=== PATIENT | male | born 1960 | race Caucasian/White ===

== ENCOUNTER 2024-10-26 23:07 | Inpatient (IN) ==
[2024-10-26 23:35] LABS: iSTAT Creatinine 1.1 mg/dl (0.6-1.3); iSTAT Ionized Calcium 1.18 mmol/l (1.12-1.32); iSTAT Potassium 3.6 mmol/L (3.3-5.0)
[2024-10-26 23:49] LABS: Appearance Urine Clear (Clear); Bilirubin Urine Negative (Negative); Blood Urine Negative (Negative); Color Urine Yellow; Glucose Urine UA Negative (Negative); Ketones Urine Negative (Negative); Leukocyte Esterase Urine Negative (Negative); Nitrite Urine Negative (Negative); Protein Urine Negative (Negative); Specific Gravity Urine 1.015 (1.000-1.030); Urobilinogen Urine Negative (Negative); pH Urine 6.5 (4.5-7.5)
[2024-10-26 23:55] LABS: Hematocrit (blood only) 47.7 % (42.0-52.0); Hemoglobin 16.2 g/dl (14.0-18.0); Mean Corpuscular Hemoglobin 29.1 pg (25.0-34.0); Mean Corpuscular Volume 85.6 fL (80.0-100.0); RDW Coefficient of Variation 13.1 % (11.5-14.5); RDW Standard Deviation 40.1 fL (36.4-46.3); Red Blood Count 5.57 M/uL (4.70-6.10); White Blood Count 8.16 K/ul (4.8-10.8)
[2024-10-26 23:56] LABS: Basophils # (auto) 0.03 K/uL (0.00-0.20); Basophils % (auto) 0.4 %; Eosinophils # (auto) 0.23 K/uL (0.00-0.50); Eosinophils % (auto) 2.8 %; Immature Granulocytes # (auto) 0.02 K/uL (0.01-0.20); Immature Granulocytes % (auto) 0.2 %; Lymphocytes # (auto) 1.72 K/uL (1.20-3.40); Lymphocytes % (auto) 21.1 %; Mean Platelet Volume 10.1 fL (9.4-12.4); Monocytes # (auto) 0.72 K/uL (0.11-0.59); Monocytes % (auto) 8.8 %; Neutrophils # (auto) 5.44 K/uL (1.40-6.50); Neutrophils % (auto) 66.7 %; Platelet Count 152 K/uL (130-400)
[2024-10-27 00:12] LABS: Albumin Globulin Ratio 1.6 (0.9-2); Albumin Level 4.5 gm/dl (3.4-5.0); BUN Creatinine Ratio 18.4 (10-20); Bilirubin,Total 0.9 mg/dl (0.2-1.0); Calcium 8.9 mg/dl (8.6-10.3); Creatinine Clr Calc Pharmacy 87.6 ml/min; Globulin 2.9 gm/dl (2.5-4.0); Potassium 3.6 mmol/L (3.5-5.1); Total Protein 7.4 gm/dl (6.0-8.3)
--- NOTE | 2024-10-27 00:16 | Emergency Department Note ---
History of Present Illness General Chief complaint: Confusion Stated complaint: CONFUSION, SUDDEN LOSS OF MEMORY Time Seen by Provider: 10/26/24 23:48 History of Present Illness This 64-year-old male with a history of hypertension and dyslipidemia presents ER for confusion episode that started at 2100. History is obtained from the patient and from the nephew. Apparently around 2100 the girlfriend noticed that he was not acting right and called the nephew who then called EMS and patient was brought here. Patient apparently keeps on repeating himself is not aware of this. Patient cannot remember what he did today. History is obtained from the nephew states that he had a normal day where he went to [place] with his brother to get a safe and had dolls for breakfast and soup at his family's house. Family denies drug use, fall, trauma, or any behavior similar to this in the past. Patient himself has no complaints. He is unaware that he is repeating himself. He is following commands. He knows where he is at but not the year or month. Past Med/Surg History Problem List (Updated 10/27/24 @ 01:31 by Jeimy Foster PA-C) Altered mental status (Acute) Social History Smoking Status: Never smoker Feels Safe at Home: Yes Review of Systems A total of 10 systems reviewed and were otherwise negative Physical Exam Vital Signs Vital Signs - 24 hr 10/26/24 23:17 10/26/24 23:17 10/26/24 23:37 Temperature 36.7 C Temperature Source Oral Pulse Rate 79 81 Pulse Rate [Apical] Respiratory Rate 17 Respiratory Effort / Characteristics Non-Labored Respiratory Depth Normal Blood Pressure 177/106 H Blood Pressure [Right Arm] Blood Pressure Mean 129 Blood Pressure Mean [Right Arm] Pulse Oximetry 92 92 Oxygen Delivery Method Room Air Room Air Sepsis Recent Fever Within 48 Hours No Sepsis New/Unexplained Change in Mental Status No Sepsis Action Taken by Nursing No Action Required 10/26/24 23:55 10/27/24 00:39 10/27/24 01:00 Temperature Temperature Source Pulse Rate 88 Pulse Rate [Apical] 79 73 Respiratory Rate 20 18 Respiratory Effort / Characteristics Non-Labored Spontaneous Respiratory Depth Normal Blood Pressure 174/108 H Blood Pressure [Right Arm] 174/121 H 153/113 H Blood Pressure Mean Blood Pressure Mean [Right Arm] 138 126 Pulse Oximetry 95 93 Oxygen Delivery Method Room Air Room Air Sepsis Recent Fever Within 48 Hours Sepsis New/Unexplained Change in Mental Status Sepsis Action Taken by Nursing 10/27/24 01:24 10/27/24 01:24 Temperature Temperature Source Pulse Rate 75 75 Pulse Rate [Apical] Respiratory Rate Respiratory Effort / Characteristics Respiratory Depth Blood Pressure 153/113 H 153/113 H Blood Pressure [Right Arm] Blood Pressure Mean Blood Pressure Mean [Right Arm] Pulse Oximetry Oxygen Delivery Method Sepsis Recent Fever Within 48 Hours Sepsis New/Unexplained Change in Mental Status Sepsis Action Taken by Nursing VITALS: Vitals are noted on the nurse's note and reviewed by myself. Vital signs stable. GENERAL: Pleasant gentleman, in no acute distress, nondiaphoretic, well- developed well-nourished. SKIN: The skin was without rashes, erythema, edema, or bruising. There is no tenting of the skin. Capillary reflex less than 2 seconds. HEAD: Normocephalic atraumatic. EARS: External auditory canals clear EYES: Pupils equal round and reactive to light and accommodation. Conjunctivae without injection, sclerae without icterus. Extraocular movements intact. NOSE: Patent, no discharge. MOUTH: Mucous membranes moist. Pharynx without erythema or exudate. Uvula midline. Airway patent. Tongue does not deviate. NECK: Supple without nuchal rigidity. No lymphadenopathy. No thyromegaly. Cervical spine is nontender. No JVD. HEART: Regular rate and rhythm LUNGS: Clear to auscultation bilaterally without wheezes, rales or rhonchi. No retractions or accessory muscle use. ABDOMEN: Positive bowel sounds x 4. Normal tympanic percussion. Soft, nontender, without masses or organomegaly. Bunch sign negative. No guarding or rebound tenderness. No CVA tenderness MUSCULOSKELETAL: No muscle atrophy, erythema, or edema noted. NEURO: Patient was alert and oriented to person place but not time. Normal sensation to light and sharp touch. No focal neurological deficits. Course Administered Medications Discontinued Medications Ioversol (Optiray 320 125ml) 118 ml IV ONCE ONE Stop: 10/27/24 00:25 Last Admin: 10/27/24 00:24 Dose: 118 ml Documented By: CLIFFORD Labetalol HCl (Labetalol Hcl Iv 5 Mg/Ml 20ml) 10 mg IV NOW STA Stop: 10/27/24 00:35 Last Admin: 10/27/24 00:39 Dose: 10 mg Documented By: ROGELIO Labetalol HCl (Labetalol Hcl Iv 5 Mg/Ml 20ml) 10 mg IV NOW STA Stop: 10/27/24 00:45 Last Admin: 10/27/24 01:24 Dose: 10 mg Documented By: ROGELIO Critical Care Time Critical Care Time: Yes Total Critical Care Time: 35 I have personally spent 35 minutes of critical care time in the direct management of this patient. This includes bedside care, interpretation of diagnostic studies, and testing, discussion with consultants, patient, and family members, and other required patient management activities. This 35 minutes is in excess of all separately billable procedures. Medical Decision Making Medical Records Attestation: I reviewed the patient's medical records. Home Medications Current Medication List: was personally reviewed by me Laboratory Data Attestation: I reviewed the patient's lab results. 10/26/24 23:38 10/26/24 23:38 Lab Results 10/26/24 10/26/24 10/26/24 Range/Units 23:15 23:22 23:32 WBC (4.8-10.8) K/ul RBC (4.70-6.10) M/uL Hgb (14.0-18.0) g/dl POC Hgb 16.0 (14.0-18.0) g/dl Hct (42.0-52.0) % POC Hct 47 (42-52) % MCV (80.0-100.0) fL MCH (25.0-34.0) pg MCHC (32.0-36.0) g/dL RDW Std Deviation (36.4-46.3) fL RDW Coeff of Jeffery (11.5-14.5) % Plt Count (130-400) K/uL MPV (9.4-12.4) fL Immature Gran % (Auto) % Neut % (Auto) % Lymph % (Auto) % [place] % (Auto) % Eos % (Auto) % Baso % (Auto) % Neut # (Auto) (1.40-6.50) K/uL Lymph # (Auto) (1.20-3.40) K/uL [place] # (Auto) (0.11-0.59) K/uL Eos # (Auto) (0.00-0.50) K/uL Baso # (Auto) (0.00-0.20) K/uL Immature Gran # (Auto) (0.01-0.20) K/uL PT 10.3 (9.0-12.0) Seconds INR 0.9 (0.9-1.1) APTT 28 (21-31) Seconds PTT Ratio 1.0 POC Sodium 141 (135-144) mmol/L Sodium (136-145) mmol/L POC Potassium 3.6 (3.3-5.0) mmol/L Potassium (3.5-5.1) mmol/L POC Chloride 104 (101-112) mmol/L Chloride (98-107) mmol/L Carbon Dioxide (21-32) mmol/L POC Total CO2 24 (24-31) mmol/L Anion Gap (3-11) POC Anion Gap 19.0 (16-25) mmol/L POC BUN 18 (7-18) mg/dl BUN (6-23) mg/dl Creatinine (0.6-1.4) mg/dl POC Creatinine 1.1 (0.6-1.3) mg/dl Est Cr Clr Drug Dosing ml/min eGFR BUN/Creatinine Ratio (10-20) Glucose (70-99(Fasting)) mg/dl POC Glucose (other) 114 H (70-99) mg/dl Calcium (8.6-10.3) mg/dl POC Ioniz Calcium Saige 1.18 (1.12-1.32) mmol/l Magnesium (1.7-2.4) mg/dl Total Bilirubin (0.2-1.0) mg/dl AST (13-39) U/L ALT (7-52) U/L Alkaline Phosphatase (34-104) U/L Troponin I High Sens (0-20) pg/ml Total Protein (6.0-8.3) gm/dl Albumin (3.4-5.0) gm/dl Globulin (2.5-4.0) gm/dl Albumin/Globulin Ratio (0.9-2) TSH (0.300-4.500) uIu/ml Urine Color Yellow Urine Appearance Clear (Clear) Urine pH 6.5 (4.5-7.5) Ur Specific Stanley 1.015 (1.000-1.030) Urine Protein Negative (Negative) Urine Glucose (UA) Negative (Negative) Urine Ketones Negative (Negative) Urine Blood Negative (Negative) Urine Nitrite Negative (Negative) Urine Bilirubin Negative (Negative) Urine Urobilinogen Negative (Negative) Ur Leukocyte Esterase Negative (Negative) Urine Opiates Screen Neg (Neg) Ur Methadone, Qual Neg (Neg) Urine Fentanyl Screen Neg (Neg) Urine Barbiturates Neg (Neg) Ur Phencyclidine (PCP) Neg (Neg) U Amphetamin/Meth Scrn Neg (Neg) MDMA (Ecstasy) Screen Neg (Neg) U Benzodiazepines Scrn Neg (Neg) Ur Cocaine Metabolite Neg (Neg) U Marijuana (THC) Screen Neg (Neg) Ethyl Alcohol mg/dL (<10.0) mg/dl 10/26/24 10/26/24 Range/Units 23:38 23:43 WBC 8.16 (4.8-10.8) K/ul RBC 5.57 (4.70-6.10) M/uL Hgb 16.2 (14.0-18.0) g/dl POC Hgb (14.0-18.0) g/dl Hct 47.7 (42.0-52.0) % POC Hct (42-52) % MCV 85.6 (80.0-100.0) fL MCH 29.1 (25.0-34.0) pg MCHC 34.0 (32.0-36.0) g/dL RDW Std Deviation 40.1 (36.4-46.3) fL RDW Coeff of Jeffery 13.1 (11.5-14.5) % Plt Count 152 (130-400) K/uL MPV 10.1 (9.4-12.4) fL Immature Gran % (Auto) 0.2 % Neut % (Auto) 66.7 % Lymph % (Auto) 21.1 % [place] % (Auto) 8.8 % Eos % (Auto) 2.8 % Baso % (Auto) 0.4 % Neut # (Auto) 5.44 (1.40-6.50) K/uL Lymph # (Auto) 1.72 (1.20-3.40) K/uL [place] # (Auto) 0.72 H (0.11-0.59) K/uL Eos # (Auto) 0.23 (0.00-0.50) K/uL Baso # (Auto) 0.03 (0.00-0.20) K/uL Immature Gran # (Auto) 0.02 (0.01-0.20) K/uL PT (9.0-12.0) Seconds INR (0.9-1.1) APTT (21-31) Seconds PTT Ratio POC Sodium (135-144) mmol/L Sodium 138 (136-145) mmol/L POC Potassium (3.3-5.0) mmol/L Potassium 3.6 (3.5-5.1) mmol/L POC Chloride (101-112) mmol/L Chloride 106 (98-107) mmol/L Carbon Dioxide 27 (21-32) mmol/L POC Total CO2 (24-31) mmol/L Anion Gap 5 (3-11) POC Anion Gap (16-25) mmol/L POC BUN (7-18) mg/dl BUN 19 (6-23) mg/dl Creatinine 1.03 (0.6-1.4) mg/dl POC Creatinine (0.6-1.3) mg/dl Est Cr Clr Drug Dosing 87.6 ml/min eGFR 81.12 BUN/Creatinine Ratio 18.4 (10-20) Glucose 113 H (70-99(Fasting)) mg/dl POC Glucose (other) (70-99) mg/dl Calcium 8.9 (8.6-10.3) mg/dl POC Ioniz Calcium Saige (1.12-1.32) mmol/l Magnesium 2.2 (1.7-2.4) mg/dl Total Bilirubin 0.9 (0.2-1.0) mg/dl AST 23 (13-39) U/L ALT 29 (7-52) U/L Alkaline Phosphatase 46 (34-104) U/L Troponin I High Sens 2.8 (0-20) pg/ml Total Protein 7.4 (6.0-8.3) gm/dl Albumin 4.5 (3.4-5.0) gm/dl Globulin 2.9 (2.5-4.0) gm/dl Albumin/Globulin Ratio 1.6 (0.9-2) TSH 2.309 (0.300-4.500) uIu/ml Urine Color Urine Appearance (Clear) Urine pH (4.5-7.5) Ur Specific Stanley (1.000-1.030) Urine Protein (Negative) Urine Glucose (UA) (Negative) Urine Ketones (Negative) Urine Blood (Negative) Urine Nitrite (Negative) Urine Bilirubin (Negative) Urine Urobilinogen (Negative) Ur Leukocyte Esterase (Negative) Urine Opiates Screen (Neg) Ur Methadone, Qual (Neg) Urine Fentanyl Screen (Neg) Urine Barbiturates (Neg) Ur Phencyclidine (PCP) (Neg) U Amphetamin/Meth Scrn (Neg) MDMA (Ecstasy) Screen (Neg) U Benzodiazepines Scrn (Neg) Ur Cocaine Metabolite (Neg) U Marijuana (THC) Screen (Neg) Ethyl Alcohol mg/dL < 10.0 (<10.0) mg/dl Imaging Data Attestation: I personally reviewed and interpreted this imaging study as follows: Radiologist's Impression: Head CT 10/26/24 23:56 EXAM: CT head/brain wo con CLINICAL HISTORY: neuro deficit, acute stroke suspected TECHNIQUE: Multiple axial images are obtained from the skull base to the vertex without contrast. CT scan was performed according to ALARA (as low as reasonably achievable). COMPARISON: None. FINDINGS: There is cerebral atrophy. No evidence of space occupying lesion, hemorrhage, edema, mass effect, midline shift, extra axial collection, or hydrocephalus is noted. Basal cisterns are symmetric and normal in size and configuration. There are scattered periventricular hypodensities as can be seen with chronic microvascular ischemic changes. The johnson-white matter differentiation is preserved. Visualized paranasal sinuses and mastoid air cells are well aerated. Orbital contents are within normal limits. Bony structures are intact. IMPRESSION: 1. No evidence of acute intracranial abnormality is demonstrated. 2. Chronic microvascular ischemic changes. 3. Cerebral atrophy. 4. CT scan is negative for large territorial ischemic / hemorrhagic stroke. 5. Non contrast CT can be negative in the setting of hyperacute infarct/small ischemic infarct and further evaluation with diffusion weighted MRI is recommended as clinically appropriate. Electronically signed by Massimo Mims 10-27-2024 01:10 AM Head CTA 10/26/24 23:56 EXAM: CT angio head w con CLINICAL HISTORY: neuro deficit, acute stroke suspected TECHNIQUE: Contrast enhanced thin slice CT angiography scan of the cerebral vessels was performed with intravenous contrast. Angiographic images were processed, 3D MIP images were acquired for interpretation. Contiguous axial images were obtained. Reformatted coronal and sagittal images were also reviewed. If IV contrast material had not been administered, the likelihood of detecting abnormalities relevant to the patients condition would have been substantially decreased. CT scan was performed according to ALARA (as low as reasonably achievable). COMPARISON: none. FINDINGS: Right vertebral artery appears hypoplastic. Mild atherosclerotic calcifications noted involving supraclinoid segment of bilateral internal carotid arteries. No stenosis noted. Bilateral internal carotid arteries show normal course, calibre and opacification in the canalicular and cavernous part. Their division into the anterior cerebral artery and middle cerebral artery is defined. A1, A2 and M1, M2 segments are normal on both the sides. Bilateral vertebral arteries are seen to unite the form the basilar artery in a normal fashion. Basilar artery shows normal course, caliber and opacification. Its division into the posterior cerebral arteries is defined. Bilateral P1 and P2 segments are normal. Visualized venous structures show normal opacification. No evidence of intracranial aneurysm or AV malformation is seen. IMPRESSION: 1. No evidence of stenosis or aneurysm. No evidence of dissection. 2. Right vertebral artery appears hypoplastic. 3. Mild atherosclerotic calcifications noted involving supraclinoid segment of bilateral internal carotid arteries. No stenosis noted. Electronically signed by Massimo Mims 10-27-2024 01:11 AM Neck CTA 10/26/24 23:56 EXAM: CT angio neck with con CLINICAL HISTORY: neuro deficit, acute stroke suspected TECHNIQUE: Contrast enhanced thin slice CT angiography scan of the carotid vessels was performed with intravenous contrast. Angiographic images were processed, 3D MIP images were acquired for interpretation.Contiguous axial images were obtained. Reformatted coronal and sagittal images were also reviewed. If IV contrast material had not been administered, the likelihood of detecting abnormalities relevant to the patients condition would have been substantially decreased. CT scan was performed according to ALARA (as low as reasonable achievable). COMPARISON: None. FINDINGS: Included great vessels of the aortic arch are grossly unremarkable. Common carotid artery, carotid Bulb, internal carotid artery , and origin of the external carotid artery are well opacified. Vertebral arteries are well opacified. Jugular veins are well opacified. Included lung apices are grossly unremarkable. Thyroid gland appears unremarkable. IMPRESSION: 1. No evidence of stenosis or aneurysm. No evidence of dissection. Electronically signed by Massimo Mims 10-27-2024 01:13 AM MDM Narrative Prior records/ancillary studies reviewed and summarized above. Nursing notes reviewed. Additional history obtained from family. The patient's history was concerning for altered mental status. Differential diagnosis: Etiologies such as metabolic, infection, hypoglycemia, electrolyte abnormalities, cardiac sources, intracerebral event, toxicologic, neurologic, as well as others were entertained. Physical examination: As above. ER treatment provided: IV Lock Normal saline hydration, labetalol was ordered for hypertension Patient was sent down immediately for stroke workup An order was placed for continuous cardiac monitoring. The monitor shows a rate of 60-100 with a sinus rhythm per my interpretation. I-STAT was ordered On reassessment the patients mental status improved. Diagnostics interpretation by me: ECG: Ordered for confusion EKG: Normal sinus, left axis, no acute ST-T wave changes, rate 80. Impression normal sinus rhythm with left axis deviation independently interpreted by myself The labs Independently Interpreted by myself revealed no worrisome leukocytosis, euthyroid, negative drug screen. Negative alcohol Imaging studies: Imaging was reviewed and read by radiology Given the above diagnostic work-up and treatment, this episode appears to be consistent with amnesia with unclear etiology. Patient cannot recall the events from today. His memory was improving upon every repeat evaluation. He is able to follow all commands. He is able to tell me the year the month and the president. He knows his girlfriend's name and his nephew's name. He states he cannot recall anything from today or yesterday. He did not remember me being in the room. Stroke imaging was negative. Stable labs. Medicine was consulted case discussed. He will be admitted to the medical service. Further treatment will be required. Consultation: A consultation was placed with the hospitalist. The case was discussed and diagnostics were reviewed. The patient was evaluated in the ER for further treatment. The chart was completed utilizing [employer] Speech voice recognition software. Grammatical errors, random word insertions, pronoun errors, and incomplete sentences are an occassional consequence of this system due to software limitations, ambient noise, and hardware issues. Any formal questions or concerns about the content, text, or information contained within the body of this dictation should be directly addressed to the physician field assistant for clarification. Impression & Plan Altered mental status Discharge Plan Visit Data Chief Complaint: Confusion Stated Complaint: CONFUSION, SUDDEN LOSS OF MEMORY ED Provider: Fatuma Jaramillo ED Midlevel Provider: Jeimy Foster Discharge Problem: Altered mental status Patient Disposition: Admitted As Inpatient Condition: Fair Forms Stand Alone Forms: Important Visit Information Referrals Referrals: PCP,NO [Physician] - Discharge Problem: Altered mental status Qualifiers: Altered mental status type: unspecified Qualified Code(s): R41.82 - Altered mental status, unspecified
[2024-10-27 00:17] LABS: Amphetamines+Metham, Urine Neg (Neg); Barbiturates, Urine Neg (Neg); Benzodiazepine, Urine Neg (Neg); Cocaine, Urine Neg (Neg); Fentanyl, Urine Neg (Neg); MDMA (Ecstacy), Urine Neg (Neg); Marijuana, Urine Neg (Neg); Methadone, Urine Neg (Neg); Opiate, Urine Neg (Neg); Phencyclidine, Urine Neg (Neg)
[2024-10-27 00:22] LABS: INR 0.9 (0.9-1.1); Partial Thromboplastin Time 28 Seconds (21-31); Prothrombin Time 10.3 Seconds (9.0-12.0)
[2024-10-27 00:22] LABS: Magnesium 2.2 mg/dl (1.7-2.4)
[2024-10-27] MEDS: OPTIRAY 320 125ml IV ONE (00:24)
[2024-10-27 00:31] LABS: Troponin I High Sensitivity 2.8 pg/ml (0-20)
[2024-10-27] MEDS: LABETALOL HCL IV 5 MG/ML 20ML IV STA ×2 (00:39→01:24)
[2024-10-27 00:46] LABS: Thyroid Stimulating Hormone 2.309 uIu/ml (0.300-4.500)
--- NOTE | 2024-10-27 01:10 | CT Scan Report ---
EXAM: CT head/brain wo con CLINICAL HISTORY: neuro deficit, acute stroke suspected TECHNIQUE: Multiple axial images are obtained from the skull base to the vertex without contrast. CT scan was performed according to ALARA (as low as reasonably achievable). COMPARISON: None. FINDINGS: There is cerebral atrophy. No evidence of space occupying lesion, hemorrhage, edema, mass effect, midline shift, extra axial collection, or hydrocephalus is noted. Basal cisterns are symmetric and normal in size and configuration. There are scattered periventricular hypodensities as can be seen with chronic microvascular ischemic changes. The johnson-white matter differentiation is preserved. Visualized paranasal sinuses and mastoid air cells are well aerated. Orbital contents are within normal limits. Bony structures are intact. IMPRESSION: 1. No evidence of acute intracranial abnormality is demonstrated. 2. Chronic microvascular ischemic changes. 3. Cerebral atrophy. 4. CT scan is negative for large territorial ischemic / hemorrhagic stroke. 5. Non contrast CT can be negative in the setting of hyperacute infarct/small ischemic infarct and further evaluation with diffusion weighted MRI is recommended as clinically appropriate. Electronically signed by Massimo Mims 10-27-2024 01:10 AM
--- NOTE | 2024-10-27 01:11 | CT Scan Report ---
EXAM: CT angio head w con CLINICAL HISTORY: neuro deficit, acute stroke suspected TECHNIQUE: Contrast enhanced thin slice CT angiography scan of the cerebral vessels was performed with intravenous contrast. Angiographic images were processed, 3D MIP images were acquired for interpretation. Contiguous axial images were obtained. Reformatted coronal and sagittal images were also reviewed. If IV contrast material had not been administered, the likelihood of detecting abnormalities relevant to the patients condition would have been substantially decreased. CT scan was performed according to ALARA (as low as reasonably achievable). COMPARISON: none. FINDINGS: Right vertebral artery appears hypoplastic. Mild atherosclerotic calcifications noted involving supraclinoid segment of bilateral internal carotid arteries. No stenosis noted. Bilateral internal carotid arteries show normal course, calibre and opacification in the canalicular and cavernous part. Their division into the anterior cerebral artery and middle cerebral artery is defined. A1, A2 and M1, M2 segments are normal on both the sides. Bilateral vertebral arteries are seen to unite the form the basilar artery in a normal fashion. Basilar artery shows normal course, caliber and opacification. Its division into the posterior cerebral arteries is defined. Bilateral P1 and P2 segments are normal. Visualized venous structures show normal opacification. No evidence of intracranial aneurysm or AV malformation is seen. IMPRESSION: 1. No evidence of stenosis or aneurysm. No evidence of dissection. 2. Right vertebral artery appears hypoplastic. 3. Mild atherosclerotic calcifications noted involving supraclinoid segment of bilateral internal carotid arteries. No stenosis noted. Electronically signed by Massimo Mims 10-27-2024 01:11 AM
--- NOTE | 2024-10-27 01:14 | CT Scan Report ---
EXAM: CT angio neck with con CLINICAL HISTORY: neuro deficit, acute stroke suspected TECHNIQUE: Contrast enhanced thin slice CT angiography scan of the carotid vessels was performed with intravenous contrast. Angiographic images were processed, 3D MIP images were acquired for interpretation.Contiguous axial images were obtained. Reformatted coronal and sagittal images were also reviewed. If IV contrast material had not been administered, the likelihood of detecting abnormalities relevant to the patients condition would have been substantially decreased. CT scan was performed according to ALARA (as low as reasonable achievable). COMPARISON: None. FINDINGS: Included great vessels of the aortic arch are grossly unremarkable. Common carotid artery, carotid Bulb, internal carotid artery , and origin of the external carotid artery are well opacified. Vertebral arteries are well opacified. Jugular veins are well opacified. Included lung apices are grossly unremarkable. Thyroid gland appears unremarkable. IMPRESSION: 1. No evidence of stenosis or aneurysm. No evidence of dissection. Electronically signed by Massimo Mims 10-27-2024 01:13 AM
[2024-10-27] MEDS ORDERED: PHARMACIST DISCHARGE MED REC CONSULT PRN (02:17)
--- NOTE | 2024-10-27 02:20 | History & Physical Report ---
Date of Service October 27, 2024 Assessment & Plan (1) Memory loss: (2) Hypertension: (3) Hyperlipidemia: (4) BPH w urinary obs/LUTS: Plan The patient is a 64-year-old male with past medical history including hypertension, hyperlipidemia, BPH with LUTS. He was noted by his girlfriend around 2100 cm, to be not acting right, and she called the nephew, who then called EMS and brought the patient to the emergency department. On en route, and when attempting to talk to family, the patient evidently kept repeating himself. Otherwise, his HPI and review of systems are significantly limited at this time. #Memory loss/confusion- Patient's HPI and ROS are significantly limited, and his complete story is piecemeal due to decreased ability to relay the events of the day. Workup in the emergency department includes CT scan of head, CTA head and neck which are negative Urine drug screen is negative Urinalysis is negative Chest x-ray with no acute findings CBC with differential, chemistry profile are all normal Will order the following workup: Tick panel, hypercoagulable workup. The patient will be admitted to telemetry for serial cardiac enzymes, serial EKG's, cardiac rhythm monitoring and a 2-D echocardiogram with Dopplers. He was given aspirin 325 mg in ED, will continue 81 milligram daily Unable to order MRI of brain, due to mental foreign body in his eye Consult neurology Will order follow-up CT scan of the brain The patient and nephew reports that during the hour that he has been in the emergency department, he is able to start remembering more events that day, but still is very confused and his memory is patch working despite Hypertension- Patient had received labetalol 10 mg IV x 2 in emergency department, with improvement in blood pressure from 220s systolic down to 160-180s. Will continue to allow permissive hypertension at this time NSS + KCl 20 mEq at 80 mL/h x 1 L Hyperlipidemia Change from simvastatin 20 mg daily to atorvastatin 80 mg daily for high-dose statin therapy BPH with LUTS- No suggestion of urinary tract infection or prostatitis at this time as potential cause, but should be monitored History of Present Illness Chief Complaint: Patient presents to the emergency department with complaint of episode of confusion, and loss of memory for events that occurred earlier in the day. The patient's HPI and review of systems are very limited, due to his lack of memory of events of the day. He does have his nephew, was in the emergency department with him this evening, and is able to provide some information on the patient's activities today. Primary Care Provider: Castro Vincent The patient is a 64-year-old male with a past medical history including BPH with LUTS, hypertension, and hyperlipidemia. His HPI and review of systems are severely limited in the middle of the night, and difficult to piece together his issues with lack of memory of today's events. Will attempt to discuss further with family and girlfriend later on. Allergies Allergy/AdvReac Type Severity Reaction Status Date / Time No Known Allergies Allergy Unverified 10/27/24 04:21 Home Medications Medication Instructions Recorded Confirmed Type alfuzosin 10 mg tablet,extended 10/27/24 10/27/24 History release 24 hr finasteride 5 mg tablet 5 mg PO DAILY 10/27/24 10/27/24 History losartan 50 mg tablet See Rx Instructions .Route .COMPLEX 10/27/24 History simvastatin 20 mg/5 mL (4 mg/mL) 20 mg PO DAILY 10/27/24 10/27/24 History oral suspension Past Med/Surg History Problem List (Updated 10/27/24 @ 05:09 by José Miguel Francois MD) BPH w urinary obs/LUTS Hyperlipidemia Hypertension Memory loss Altered mental status (Acute) Social History Smoking Status: Never smoker Hx Alcohol Use: Yes Alcohol type: beer Hx Substance Use: No Preferred Language: Eritrean Communication Ability: Effective Radio Intelligence Operator Required: No Beliefs That Will Affect Care: None Current Living Situation: Alone Feels Safe at Home: Yes Assistive Devices: None Review of Systems Review of Systems: HPI systems are limited as noted Physical Exam Physical Exam: The patient is awake, alert and oriented 3, well developed and well nourished, normocephalic and atraumatic, lying in bed and in no acute distress. HEENT--PERRL, EOMI, mucous membranes and oropharynx mildly dry. Neck--supple. No JVD. No bruits. Thyroid normal, trachea midline, no adenopathy. Heart--normal S1 and S2. No murmurs, rubs or gallops. Lungs--clear bilaterally, no respiratory distress, no accessory muscle use. Abdomen--normal bowel sounds and soft. Nontender. Nondistended, no hernias or masses, no organomegaly. Extremities--no cyanosis or clubbing. No edema. There are good distal pulses b/l. Dermatologic--normal skin turgor, normal color, no abnormal lymph nodes, no rash. Neurologic--cranial nerves II through XII grossly intact. Rheumatologic--normal range of motion. Psychiatric--normal affect. Results & Data Results & Data Vital Signs (Past 12 Hours) Vital Signs Temp Pulse Pulse Resp BP BP Pulse Ox 10/27/24 02:02 76 135/78 10/27/24 01:24 75 153/113 H 10/27/24 01:24 75 153/113 H 10/27/24 01:00 73 18 153/113 H 93 10/27/24 00:39 88 174/108 H 10/26/24 23:55 79 20 174/121 H 95 10/26/24 23:37 81 10/26/24 23:17 92 10/26/24 23:17 36.7 C 79 17 177/106 H 92 O2 Del Method 10/27/24 02:02 10/27/24 01:24 10/27/24 01:24 10/27/24 01:00 Room Air 10/27/24 00:39 10/26/24 23:55 Room Air 10/26/24 23:37 10/26/24 23:17 Room Air 10/26/24 23:17 Room Air Laboratory Results Laboratory Results WBC 8.16 K/ul (4.8-10.8) 10/26/24 23:38 RBC 5.57 M/uL (4.70-6.10) 10/26/24 23:38 Hgb 16.2 g/dl (14.0-18.0) 10/26/24 23:38 POC Hgb 16.0 g/dl (14.0-18.0) 10/26/24 23:22 Hct 47.7 % (42.0-52.0) 10/26/24 23:38 POC Hct 47 % (42-52) 10/26/24 23:22 MCV 85.6 fL (80.0-100.0) 10/26/24 23:38 MCH 29.1 pg (25.0-34.0) 10/26/24 23:38 MCHC 34.0 g/dL (32.0-36.0) 10/26/24 23:38 RDW Std Deviation 40.1 fL (36.4-46.3) 10/26/24 23:38 RDW Coeff of Jeffery 13.1 % (11.5-14.5) 10/26/24 23:38 Plt Count 152 K/uL (130-400) 10/26/24 23:38 MPV 10.1 fL (9.4-12.4) 10/26/24 23:38 Immature Gran % (Auto) 0.2 % 10/26/24 23:38 Neut % (Auto) 66.7 % 10/26/24 23:38 Lymph % (Auto) 21.1 % 10/26/24 23:38 Upson % (Auto) 8.8 % 10/26/24 23:38 Eos % (Auto) 2.8 % 10/26/24 23:38 Baso % (Auto) 0.4 % 10/26/24 23:38 Neut # (Auto) 5.44 K/uL (1.40-6.50) 10/26/24 23:38 Lymph # (Auto) 1.72 K/uL (1.20-3.40) 10/26/24 23:38 Upson # (Auto) 0.72 K/uL (0.11-0.59) H 10/26/24 23:38 Eos # (Auto) 0.23 K/uL (0.00-0.50) 10/26/24 23:38 Baso # (Auto) 0.03 K/uL (0.00-0.20) 10/26/24 23:38 Immature Gran # (Auto) 0.02 K/uL (0.01-0.20) 10/26/24 23:38 PT 10.3 Seconds (9.0-12.0) 10/26/24 23:15 INR 0.9 (0.9-1.1) 10/26/24 23:15 APTT 28 Seconds (21-31) 10/26/24 23:15 PTT Ratio 1.0 10/26/24 23:15 POC Sodium 141 mmol/L (135-144) 10/26/24 23:22 Sodium 138 mmol/L (136-145) 10/26/24 23:38 POC Potassium 3.6 mmol/L (3.3-5.0) 10/26/24 23:22 Potassium 3.6 mmol/L (3.5-5.1) 10/26/24 23:38 POC Chloride 104 mmol/L (101-112) 10/26/24 23:22 Chloride 106 mmol/L (98-107) 10/26/24 23:38 Carbon Dioxide 27 mmol/L (21-32) 10/26/24 23:38 POC Total CO2 24 mmol/L (24-31) 10/26/24 23:22 Anion Gap 5 (3-11) 10/26/24 23:38 POC Anion Gap 19.0 mmol/L (16-25) 10/26/24 23:22 POC BUN 18 mg/dl (7-18) 10/26/24 23:22 BUN 19 mg/dl (6-23) 10/26/24 23:38 Creatinine 1.03 mg/dl (0.6-1.4) 10/26/24 23:38 POC Creatinine 1.1 mg/dl (0.6-1.3) 10/26/24 23:22 Est Cr Clr Drug Dosing 87.6 ml/min 10/26/24 23:38 eGFR 81.12 10/26/24 23:38 BUN/Creatinine Ratio 18.4 (10-20) 10/26/24 23:38 Glucose 113 mg/dl (70-99(Fasting)) H 10/26/24 23:38 POC Glucose (other) 114 mg/dl (70-99) H 10/26/24 23:22 Calcium 8.9 mg/dl (8.6-10.3) 10/26/24 23:38 POC Ioniz Calcium Saige 1.18 mmol/l (1.12-1.32) 10/26/24 23:22 Magnesium 2.2 mg/dl (1.7-2.4) 10/26/24 23:38 Total Bilirubin 0.9 mg/dl (0.2-1.0) 10/26/24 23:38 AST 23 U/L (13-39) 10/26/24 23:38 ALT 29 U/L (7-52) 10/26/24 23:38 Alkaline Phosphatase 46 U/L (34-104) 10/26/24 23:38 Troponin I High Sens 2.8 pg/ml (0-20) 10/26/24 23:38 Total Protein 7.4 gm/dl (6.0-8.3) 10/26/24 23:38 Albumin 4.5 gm/dl (3.4-5.0) 10/26/24 23:38 Globulin 2.9 gm/dl (2.5-4.0) 10/26/24 23:38 Albumin/Globulin Ratio 1.6 (0.9-2) 10/26/24 23:38 TSH 2.309 uIu/ml (0.300-4.500) 10/26/24 23:38 Urine Color Yellow 10/26/24 23:32 Urine Appearance Clear (Clear) 10/26/24 23:32 Urine pH 6.5 (4.5-7.5) 10/26/24 23:32 Ur Specific [place] 1.015 (1.000-1.030) 10/26/24 23:32 Urine Protein Negative (Negative) 10/26/24 23:32 Urine Glucose (UA) Negative (Negative) 10/26/24 23:32 Urine Ketones Negative (Negative) 10/26/24 23:32 Urine Blood Negative (Negative) 10/26/24 23:32 Urine Nitrite Negative (Negative) 10/26/24 23:32 Urine Bilirubin Negative (Negative) 10/26/24 23:32 Urine Urobilinogen Negative (Negative) 10/26/24 23:32 Ur Leukocyte Esterase Negative (Negative) 10/26/24 23:32 Urine Opiates Screen Neg (Neg) 10/26/24 23:32 Ur Methadone, Qual Neg (Neg) 10/26/24 23:32 Urine Fentanyl Screen Neg (Neg) 10/26/24 23:32 Urine Barbiturates Neg (Neg) 10/26/24 23:32 Ur Phencyclidine (PCP) Neg (Neg) 10/26/24 23:32 U Amphetamin/Meth Scrn Neg (Neg) 10/26/24 23:32 MDMA (Ecstasy) Screen Neg (Neg) 10/26/24 23:32 U Benzodiazepines Scrn Neg (Neg) 10/26/24 23:32 Ur Cocaine Metabolite Neg (Neg) 10/26/24 23:32 U Marijuana (THC) Screen Neg (Neg) 10/26/24 23:32 Ethyl Alcohol mg/dL < 10.0 mg/dl (<10.0) 10/26/24 23:[address] 10/26/24 23:56 EXAM: CT head/brain wo con CLINICAL HISTORY: neuro deficit, acute stroke suspected TECHNIQUE: Multiple axial images are obtained from the skull base to the vertex without contrast. CT scan was performed according to ALARA (as low as reasonably achievable). COMPARISON: None. FINDINGS: There is cerebral atrophy. No evidence of space occupying lesion, hemorrhage, edema, mass effect, midline shift, extra axial collection, or hydrocephalus is noted. Basal cisterns are symmetric and normal in size and configuration. There are scattered periventricular hypodensities as can be seen with chronic microvascular ischemic changes. The johnson-white matter differentiation is preserved. Visualized paranasal sinuses and mastoid air cells are well aerated. Orbital contents are within normal limits. Bony structures are intact. IMPRESSION: 1. No evidence of acute intracranial abnormality is demonstrated. 2. Chronic microvascular ischemic changes. 3. Cerebral atrophy. 4. CT scan is negative for large territorial ischemic / hemorrhagic stroke. 5. Non contrast CT can be negative in the setting of hyperacute infarct/small ischemic infarct and further evaluation with diffusion weighted MRI is recommended as clinically appropriate. Electronically signed by Massimo Mims 10-27-2024 01:10 AM Head CTA 10/26/24 23:56 EXAM: CT angio head w con CLINICAL HISTORY: neuro deficit, acute stroke suspected TECHNIQUE: Contrast enhanced thin slice CT angiography scan of the cerebral vessels was performed with intravenous contrast. Angiographic images were processed, 3D MIP images were acquired for interpretation. Contiguous axial images were obtained. Reformatted coronal and sagittal images were also reviewed. If IV contrast material had not been administered, the likelihood of detecting abnormalities relevant to the patients condition would have been substantially decreased. CT scan was performed according to ALARA (as low as reasonably achievable). COMPARISON: none. FINDINGS: Right vertebral artery appears hypoplastic. Mild atherosclerotic calcifications noted involving supraclinoid segment of bilateral internal carotid arteries. No stenosis noted. Bilateral internal carotid arteries show normal course, calibre and opacification in the canalicular and cavernous part. Their division into the anterior cerebral artery and middle cerebral artery is defined. A1, A2 and M1, M2 segments are normal on both the sides. Bilateral vertebral arteries are seen to unite the form the basilar artery in a normal fashion. Basilar artery shows normal course, caliber and opacification. Its division into the posterior cerebral arteries is defined. Bilateral P1 and P2 segments are normal. Visualized venous structures show normal opacification. No evidence of intracranial aneurysm or AV malformation is seen. IMPRESSION: 1. No evidence of stenosis or aneurysm. No evidence of dissection. 2. Right vertebral artery appears hypoplastic. 3. Mild atherosclerotic calcifications noted involving supraclinoid segment of bilateral internal carotid arteries. No stenosis noted. Electronically signed by Massimo Mims 10-27-2024 01:11 AM Neck CTA 10/26/24 23:56 EXAM: CT angio neck with con CLINICAL HISTORY: neuro deficit, acute stroke suspected TECHNIQUE: Contrast enhanced thin slice CT angiography scan of the carotid vessels was performed with intravenous contrast. Angiographic images were processed, 3D MIP images were acquired for interpretation.Contiguous axial images were obtained. Reformatted coronal and sagittal images were also reviewed. If IV contrast material had not been administered, the likelihood of detecting abnormalities relevant to the patients condition would have been substantially decreased. CT scan was performed according to ALARA (as low as reasonable achievable). COMPARISON: None. FINDINGS: Included great vessels of the aortic arch are grossly unremarkable. Common carotid artery, carotid Bulb, internal carotid artery , and origin of the external carotid artery are well opacified. Vertebral arteries are well opacified. Jugular veins are well opacified. Included lung apices are grossly unremarkable. Thyroid gland appears unremarkable. IMPRESSION: 1. No evidence of stenosis or aneurysm. No evidence of dissection. Electronically signed by Massimo Mims 10-27-2024 01:13 AM Orbit X-Ray 10/27/24 02:48 EXAM: XR orbits for MRI CLINICAL HISTORY: Screening for foreign body for MRI TECHNIQUE: X-ray of orbits AP and lateral views were obtained. COMPARISON: 10/26/2024 CT head/brain. FINDINGS: Radiopaque foreign body seen at the left orbit. The sinuses are clear. IMPRESSION: 1. Radiopaque foreign body seen at the left orbit. 2. Concur with the CT findings. DISCLAIMER:A subtle bone abnormality or fracture may not be readily apparent on x-rays; thus, clinical correlation and further imaging,g including follow up CT, MRI, or follow-up x-rays are advised as needed. Electronically signed by Rigo Toussaint 10-27-2024 03:51 AM Code Status & VTE Plan Code Status Full code VTE Prophylaxis Plan VTE Prophylaxis will be ordered: Yes PG Care Time/CCT Total # of Minutes Spent Total Time Spent with Patient: Total time spent is greater than 50% in coordination of care (as documented) at patient's floor/unit and/or counseling patient: Coding Level of Care Code 01400 INT INP/OBS CARE 3/75MIN Diagnoses Memory loss R41.3 Hypertension I10 Hyperlipidemia E78.5 BPH w urinary obs/LUTS N40.1; N13.8
[2024-10-27] MEDS ORDERED: ONDANSETRON INJ 2 MG/ML 2 ML VIAL IV PRN (03:25)
[2024-10-27 03:50] VITALS: RESP 18
--- NOTE | 2024-10-27 03:52 | XRay Report ---
EXAM: XR orbits for MRI CLINICAL HISTORY: Screening for foreign body for MRI TECHNIQUE: X-ray of orbits AP and lateral views were obtained. COMPARISON: 10/26/2024 CT head/brain. FINDINGS: Radiopaque foreign body seen at the left orbit. The sinuses are clear. IMPRESSION: 1. Radiopaque foreign body seen at the left orbit. 2. Concur with the CT findings. DISCLAIMER:A subtle bone abnormality or fracture may not be readily apparent on x-rays; thus, clinical correlation and further imaging,g including follow up CT, MRI, or follow-up x-rays are advised as needed. Electronically signed by Rigo Toussaint 10-27-2024 03:51 AM
[2024-10-27] MEDS: Patient's ALLERGY Info needs ENTERED STA (04:28)
[2024-10-27] MEDS: NSS + 20MEQ KCL 20 MEQ/1,000 ML BAG IV SCH (05:03)
[2024-10-27 06:32] LABS: Basophils # (auto) 0.03 K/uL (0.00-0.20); Basophils % (auto) 0.4 %; Eosinophils # (auto) 0.13 K/uL (0.00-0.50); Eosinophils % (auto) 1.6 %; Hemoglobin 15.6 g/dl (14.0-18.0); Immature Granulocytes # (auto) 0.02 K/uL (0.01-0.20); Immature Granulocytes % (auto) 0.2 %; Lymphocytes # (auto) 1.45 K/uL (1.20-3.40); Lymphocytes % (auto) 17.7 %; Mean Corpuscular Hemoglobin 29.7 pg (25.0-34.0); Mean Corpuscular Hgb Conc 34.7 g/dL (32.0-36.0); Mean Corpuscular Volume 85.7 fL (80.0-100.0); Mean Platelet Volume 10.2 fL (9.4-12.4); Monocytes % (auto) 7.3 %; Neutrophils # (auto) 5.97 K/uL (1.40-6.50); Neutrophils % (auto) 72.8 %; Platelet Count 154 K/uL (130-400); RDW Coefficient of Variation 13.2 % (11.5-14.5); RDW Standard Deviation 40.7 fL (36.4-46.3); Red Blood Count 5.25 M/uL (4.70-6.10)
[2024-10-27 06:50] LABS: Calcium 8.7 mg/dl (8.6-10.3); Chol HDL Ratio 2.9 (0-5); Creatinine Clr Calc Pharmacy 95.7 ml/min; Potassium 3.9 mmol/L (3.5-5.1)
[2024-10-27 06:57] LABS: Prothrombin Time 10.8 Seconds (9.0-12.0)
[2024-10-27 07:45] LABS: Estimated Average Glucose 105 mg/dl; Hemoglobin A1C 5.3 % (4.5-5.6)
[2024-10-27 07:59] VITALS: TEMP 97.5
[2024-10-27] MEDS: ATORVASTATIN 40 MG TAB PO SCH (08:03)
[2024-10-27] MEDS: ASPIRIN 81 MG ECTAB PO SCH (08:03)
--- NOTE | 2024-10-27 10:21 | Neurology Consultation ---
Date of Consultation October 27, 2024 Assessment & Plan (1) TGA (transient global amnesia): History of Present Illness Attending Physician: Mckenzie Pulido MD History of Present Illness S: pt this morning feeling well. no prior similar events. pt was completely awake and talking but repeating himself. CT/CTA head/neck negative. no abnormal movements or headache. no other deficits. admission note: This 64-year-old male with a history of hypertension and dyslipidemia presents ER for confusion episode that started at 2100. History is obtained from the patient and from the nephew. Apparently around 2100 the girlfriend noticed that he was not acting right and called the nephew who then called EMS and patient was brought here. Patient apparently keeps on repeating himself is not aware of this. Patient cannot remember what he did today. History is obtained from the nephew states that he had a normal day where he went to [place] with his brother to get a safe and had dolls for breakfast and soup at his family's house. Family denies drug use, fall, trauma, or any behavior similar to this in the past. Patient himself has no complaints. He is unaware that he is repeating himself. He is following commands. He knows where he is at but not the year or month. Allergies Allergy/AdvReac Type Severity Reaction Status Date / Time No Known Allergies Allergy Unverified 10/27/24 04:21 Home Medications Medication Instructions Recorded Confirmed Type alfuzosin 10 mg tablet,extended 10/27/24 10/27/24 History release 24 hr finasteride 5 mg tablet 5 mg PO DAILY 10/27/24 10/27/24 History losartan 50 mg tablet See Rx Instructions .Route .COMPLEX 10/27/24 History simvastatin 20 mg/5 mL (4 mg/mL) 20 mg PO DAILY 10/27/24 10/27/24 History oral suspension Patient History Social History Smoking Status: Never smoker Hx Alcohol Use: Yes Alcohol type: beer Hx Substance Use: No Preferred Language: Latvian Communication Ability: Effective Mill Stenciler Required: No Beliefs That Will Affect Care: None Current Living Situation: Alone Feels Safe at Home: Yes Assistive Devices: None Exam (Neuro) Physical Exam: HEENT: normocephalic grossly Neuro: Mental: AOx4, fluent speech, normal comprehension, no apraxia, no L/R confusion, no neglect CN: PERRL, Full EOM, symmetric face, midline T/U/P, grossly full ROM neck Motor: No abnormal movements, normal tone, 5/5 t/o bilaterally Sens: intact to touch b/l grossly Coord: intact FNT b/l DTR: 2+ sym b/l Impression: 64 yo male with overall picture suggestive of Transient global amnesia event. Not suggestive of stroke/vascular event. TGA is benign condition without clear etiology. Recommendations: no further work up needed from neurology stand point. close monitoring for BP at home. avoid strenuous activities next 4-5 days. call again if new question. Chart reviewed I have spent more than 50% educating patient about potential diagnosis and neurological evaluation and coordinating care with patient's treatment team. Total time spent (including chart review and coordination of care): 45 min (this includes chart review). Results & Data Vital Signs (Past 12 Hours) Vital Signs Temp Pulse Pulse Resp BP BP Pulse Ox 10/27/24 09:38 72 10/27/24 07:57 36.4 C L 70 18 114/71 95 10/27/24 04:48 80 10/27/24 03:34 36.6 C 77 18 147/90 H 93 10/27/24 02:57 73 17 150/90 H 93 10/27/24 02:02 76 135/78 10/27/24 01:24 75 153/113 H 10/27/24 01:24 75 153/113 H 10/27/24 01:00 73 18 153/113 H 93 10/27/24 00:39 88 174/108 H 10/26/24 23:55 79 20 174/121 H 95 10/26/24 23:37 81 10/26/24 23:17 92 10/26/24 23:17 36.7 C 79 17 177/106 H 92 O2 Del Method 10/27/24 09:38 10/27/24 07:57 Room Air 10/27/24 04:48 10/27/24 03:34 Room Air 10/27/24 02:57 Room Air 10/27/24 02:02 10/27/24 01:24 10/27/24 01:24 10/27/24 01:00 Room Air 10/27/24 00:39 10/26/24 23:55 Room Air 10/26/24 23:37 10/26/24 23:17 Room Air 10/26/24 23:17 Room Air PG Care Time/CCT Total # of Minutes Spent Total Time Spent with Patient: Total time spent is greater than 50% in coordination of care (as documented) at patient's floor/unit and/or counseling patient: Coding Level of Care Code 79249 IN/OBS CONSULT LVL 3,45M Diagnoses TGA (transient global amnesia) G45.4
[2024-10-27 12:06] VITALS: BP 131/79; PULSE 71; O2SAT 94
--- NOTE | 2024-10-27 12:14 | Electrocardiogram Report ---
Test Reason : Blood Pressure : */* mmHG Vent. Rate : 80 BPM Atrial Rate : 80 BPM P-R Int : 158 ms QRS Dur : 110 ms QT Int : 384 ms P-R-T Axes : 24 -36 -1 degrees QTcB Int : 442 ms Normal sinus rhythm left atrial abnormality Left axis deviation Minimal voltage criteria for LVH, may be normal variant ( R in aVL ) Possible Anterior infarct , age undetermined Abnormal ECG No previous ECGs available Confirmed by Tisha Swift ([id number]) on 10/27/2024 12:14:34 PM Referred By: REFERRED SELF Confirmed By: Tisha Swift
[2024-10-27] MEDS ORDERED: STROKE PATIENT DISCHARGE STA (12:33)
--- NOTE | 2024-10-27 18:11 | Discharge Summary ---
Discharge Summary Date of Service October 27, 2024 Principal Dx & Hospital Course #1 = Principal Diagnosis (1) Memory loss: (2) Hypertension: (3) Hyperlipidemia: (4) BPH w urinary obs/LUTS: Plan The patient is a 64-year-old male with past medical history including hypertension, hyperlipidemia, BPH with LUTS. He was noted by his girlfriend around 2100 cm, to be not acting right, and she called the nephew, who then called EMS and brought the patient to the emergency department. On en route, and when attempting to talk to family, the patient evidently kept repeating himself. Otherwise, his HPI and review of systems are significantly limited at this time. #Memory loss/confusion- Patient's HPI and ROS are significantly limited, and his complete story is piecemeal due to decreased ability to relay the events of the day. Workup in the emergency department includes CT scan of head, CTA head and neck which are negative Urine drug screen is negative Urinalysis is negative Chest x-ray with no acute findings CBC with differential, chemistry profile are all normal Neurology consultation completed - Noted that Transient global amnesia is a benign condition that doesn't need any additional work up Recommended avoiding strenuous work Hypertension- Patient had received labetalol 10 mg IV x 2 in emergency department, with improvement in blood pressure from 220s systolic down to 160-180s. Controlled at discharge, recommended outpatient monitoring and PCP follow up Hyperlipidemia Continue statin BPH with LUTS No suggestion of urinary tract infection or prostatitis at this time Discharged home Admission HPI Per Admitting Provider The patient is a 64-year-old male with a past medical history including BPH with LUTS, hypertension, and hyperlipidemia. His HPI and review of systems are severely limited in the middle of the night, and difficult to piece together his issues with lack of memory of today's events. Will attempt to discuss further with family and girlfriend later on. Discharge Exam The patient is awake, alert and oriented 3, well developed and well nourished, normocephalic and atraumatic, lying in bed and in no acute distress. HEENT--PERRL Neck--supple. No JVD. No bruits. Thyroid normal, trachea midline, no adenopathy. Heart--normal S1 and S2. No murmurs, rubs or gallops. Lungs--clear bilaterally, no respiratory distress, no accessory muscle use. Abdomen--normal bowel sounds and soft. Nontender. Nondistended, no hernias or masses, no organomegaly. Extremities--no cyanosis or clubbing. No edema. There are good distal pulses b/l. Dermatologic--normal skin turgor, normal color, no abnormal lymph nodes, no rash. Neurologic--cranial nerves II through XII grossly intact. Rheumatologic--normal range of motion. Psychiatric--normal affect. Discharge Plan Discharge Items Patient Disposition: Home - Self-Care Reason For Visit: MEMORY LOSS Discharge Diagnosis: Transient global amnesia Condition on Discharge: Fair Activity: As commented below Activity Comment: no strenous activity for 4-5 days Non-emergency contact: Primary Care Provider Call non-emergency contact if: you have any medication questions and your symptoms worsen Follow-up/Referrals: Castro Vincent [Primary Care Provider] - Diet: Regular Addtl Attending Provider Instructions: Follow up with primary care physician in 5-7 days Check your BP daily and reveiw with your primary care Pending Studies at Discharge: No Stand-Alone Forms: [facility] CEINT, Smoking Cessation Medications and DC Order Prescriptions: Continued alfuzosin 10 mg Tablet Extended Release 24 Hr simvastatin 20 mg/5 mL (4 mg/mL) Suspension 20 mg PO DAILY losartan 50 mg Tablet See Rx Instructions .ROUTE .COMPLEX Rx Instructions: once per day finasteride 5 mg Tablet 5 mg PO DAILY Discharge Orders: Discharge Order (Routine); Ordered 10/27/24 Ordered By: Mckenzie Zimmerman/Other Patient Handouts: What Is a TIA?, Hypertension Dc, Low Salt Diet Dc Admission Data Admit Date/Time: 10/27/24 02:16 Attending Provider: Mckenzie Pulido Admit Provider: José Miguel Francois Primary Care Provider: Castro Vincent Other Providers: José Miguel Francois; Ángel Rosales Other Interventions: Discharge Summary Assessment (RN) Last Done: 10/27/24 11:55 Hospital Stay Data Consultations 10/27/24 01:40 ED Decision to Admit Stat 10/27/24 02:17 Consult Neurology Routine Diagnostic Imagining Performed 10/26/24 23:56 CT angio head w con Stat CT angio neck with con Stat CT head/brain wo con Stat Pending Results Patient Have Any Pending Studies at Discharge: No Discharge Instructions Given to Patient (Per Discharging Provider) Follow up with primary care physician in 5-7 days Check your BP daily and reveiw with your primary care Total Time Total Time Spent Total Time Spent (In Minutes): 35 min Coding Level of Care Code 13613 INP/OBS DISCH >30 MIN Diagnoses Memory loss R41.3 Hypertension I10 Hyperlipidemia E78.5 BPH w urinary obs/LUTS N40.1; N13.8
== END 2024-10-27 13:38 | disposition home or self-care (01) | DRG 72 ==
LOC: ED 23:07 → SUATTDRO 10-27 02:16 → 2S 10-27 02:16